=== PATIENT | male | born 1945 | race Caucasian/White ===

== ENCOUNTER 2020-06-07 17:52 | Emergency (ER) | payer MEDICARE, BC ==
--- NOTE | 2020-06-07 18:59 | CT ---
CT head noncontrast HISTORY: Fall. Injury. FINDINGS: A 0.4 cm serpiginous area of hyperdensity is associated with a deep anterior left frontal s ulcus. No subdural hematoma is evident. No mass effect or shift of midline structures. Ventricles are within normal limits. Mild rightward displacement of a comminuted nasal bone fracture. Comminuted fractures also involve th e anterior, medial, and posterolateral cardona of the left maxillary sinus with moderate depression. Associated subcutaneous gas. Maxillary sinus is filled with blood product. There is 0.8 cm inferior displacement of a comminuted left maxillary roof fracture (orbital blowout). Inferior rectus muscle is not involved. Comminuted fractures of the left lamina papyracea noted with extensive gas in the medial aspect of the left orbit. No intraconal gas is evident. Nondisplaced left zygomatic arch fracture. Prominent soft tissue swelling associated with the left orbital injury. Globe is intact. IMPRESSION : Tiny focus of left frontal subarachnoid hemorrhage without mass effect. Comminuted, depressed left orbital floor blowout fracture without evidence of muscular entrapment. Co mminuted fracture of all the cardona of the left maxillary sinus with displacement and hemorrhage. Associated left lamina papyracea fracture. Globes are intact. No evidence of intraconal orbital hematoma. Findings were called to Dr. Howell in the emergency department at [id number] hours. Code CR.
--- NOTE | 2020-06-07 19:05 | CT ---
CT facial bones noncontrast HISTORY: Fall. Injury. FINDINGS: Tiny focus of left frontal subarachnoid hemorrhage is partially visualized. Better detailed on dedicated CT head. The mandible and globes are intact. Mild rightward displacement of a comminuted nasal bone fracture. Comminuted fractures also involve th e anterior, medial, and posterolateral cardona of the left maxillary sinus with moderate depression. Associated subcutaneous gas. Maxillary sinus is filled with blood product. There is 0.8 cm inferior displacement of a comminuted left maxillary roof fracture (orbital blowout). Inferior rectus muscle is not involved. Comminuted fractures of the left lamina papyracea noted with extensive gas in the medial aspect of the left orbit. No intraconal gas is evident. Nondisplaced left zygomatic arch fracture. Mild buckling of a left orbital lateral wall fracture. Prominent soft tissue swelling associated with the left orbital injury. Globe is intact. IMPRESSION : Comminuted, depressed left orbital floor blowout fracture without evidence of muscular entrapment. Co mminuted fracture of all the cardona of the left maxillary sinus with displacement and hemorrhage. Associated left lamina papyracea fracture. Left zygomatic arch and orbital lateral wall fractures. Globes are intact. No evidence of intraconal orbital hematoma.
[2020-06-07] MEDS ORDERED: Lidocaine 1% w/Epinephrine 1:100K 30 ML VIAL ONE (19:12)
--- NOTE | 2020-06-07 19:12 | CT ---
CT cervical spine noncontrast HISTORY: Fall. Injury. COMPARISON: 12/18/2003. FINDINGS: No acute fracture or dislocation are apparent. Degenerative appearing spondylolisthesis parvin dent at the C7-T1 and T1-2 levels. Postoperative changes at the T1-2 level including anterior fixation plate and posterior cerclage wire. The spondylolisthesis and cerclage wires appears stable. Anterior fixation plate is new. Severe osteophytosis throughout the cervical spine. S-shaped rotatory scoliotic curvature similar to the prior study. Subluxation of the left facets of the lower cervical spine unchanged from the prior exam. Injury to the left side of the face is partially visualized and better detailed on dedicated CT face and head exams. IMPRESSION : Postoperative and severe degenerative changes are stable. No acute injury is demonstrated.
[2020-06-07] MEDS ORDERED: Labetalol HCl 100 MG/20 ML VIAL ONE (19:37)
[2020-06-07] MEDS ORDERED: Ondansetron PF 4 MG/2 ML Vial ONE (19:43)
== END 2020-06-07 20:17 | disposition short-term general hospital (02) ==
LOC: NAV ERS 17:52
DX: S06.6X0A Traumatic subarachnoid hemorrhage without loss of consciousness, initial encounter (principal); S02.40DA Maxillary fracture, left side, initial encounter for closed fracture; S02.32XA Fracture of orbital floor, left side, initial encounter for closed fracture; S01.112A Laceration without foreign body of left eyelid and periocular area, initial encounter; I10 Essential (primary) hypertension; E78.00 Pure hypercholesterolemia, unspecified; Z79.82 Long term (current) use of aspirin; Z79.899 Other long term (current) drug therapy; W00.0XXA Fall on same level due to ice and snow, initial encounter
CPT/HCPCS: 12011; 70450; 70486; 72125; 96374; 96375; J2405